=== PATIENT | male | born 1950 | race African-American/Black ===

== ENCOUNTER 2021-05-09 17:35 | Emergency (ER) | payer OTHER ==
[2021-05-09] MEDS ORDERED: CALCIUM CHLORIDE 1 GM/10 ML *DISP.SYRIN ONE (17:47)
[2021-05-09] MEDS ORDERED: GLUCAGON 1 MG KIT ONE (17:50)
[2021-05-09] MEDS ORDERED: SODIUM BICARBONATE 8.4% - 50 ML ONE (17:55)
[2021-05-09 18:41] VITALS: BP 00/00; TEMP 98.1; BMI 25.0
== END 2021-05-09 19:10 | disposition expired ==
LOC: JER 17:35
PROC: 5A12012 Performance of Cardiac Output, Single, Manual (ICD-10-PCS; principal; 2021-05-09)
DX: I46.9 Cardiac arrest, cause unspecified (principal)
CPT/HCPCS: 99283-25